=== PATIENT | male | born 1940 | race Caucasian/White ===

== ENCOUNTER → 2016-08-07 | Outpatient (CLI) | payer MEDICARE | LOC: KOH-I 14:23 | DX: M25.562 Pain in left knee (principal) | CPT/HCPCS: 73700 ==

== ENCOUNTER → 2021-11-30 | Day surgery (SDC) | payer MEDICARE ==
[~2021-11-30] MED LIST: ALDACTONE25 MG PO; ASPIR-LOW81 MG PO; BUMETANIDE0.5 MG PO; CALCIUM600 MG PO; COREG 3.125M3.125 MG PO; ENTRESTO 24 MG1 EACH PO; HYDROCODONE-AC1 EAC1 PO; LIPITOR40 MG PO; MAGOX 400400 MG PO; NITROGLYCERIN0.4 MG SL; NORCO 7.5-3251 EACH PO; PRINIVIL5 MG PO; PROTONIX 40 MG40 M1 PO; RIVASTIGMINE3 MG PO; Voltaren Gel 1 % TOP; XANAX 0.25 MG0.25 MG PO; XARELTO20 MG PO; ZYLOPRIM 100 M100 MG PO
== END | disposition home or self-care (01) ==
LOC: OR 07:19
DX: K29.61 Other gastritis with bleeding (principal); K25.4 Chronic or unspecified gastric ulcer with hemorrhage; K29.80 Duodenitis without bleeding; K26.9 Duodenal ulcer, unspecified as acute or chronic, without hemorrhage or perforation; K44.9 Diaphragmatic hernia without obstruction or gangrene; M62.08 Separation of muscle (nontraumatic), other site; K42.0 Umbilical hernia with obstruction, without gangrene; D68.9 Coagulation defect, unspecified; E66.3 Overweight; E78.00 Pure hypercholesterolemia, unspecified; I10 Essential (primary) hypertension; M10.9 Gout, unspecified; E11.9 Type 2 diabetes mellitus without complications; Z79.01 Long term (current) use of anticoagulants; Z79.82 Long term (current) use of aspirin; Z68.26 Body mass index [BMI] 26.0-26.9, adult
CPT/HCPCS: 82962; J2704; J7040